=== PATIENT | male | born 2000 | race Caucasian/White ===

== ENCOUNTER 2020-04-10 06:32 | Emergency (ER) | payer BC, MEDICAID ==
[~2020-04-10] VITALS: Ht 172.7 cm; Wt 82.3 kg
--- NOTE | 2020-04-10 06:54 | NUR ---
REPORT TO PEG SRIVASTAVA
[2020-04-10] MEDS ORDERED: FENTANYL PF 100 MCG/2ML ONE ×2 (06:58→09:10)
[2020-04-10] MEDS ORDERED: FENTANYL PF 100 MCG/2ML IM ONE (07:00)
--- NOTE | 2020-04-10 07:12 | NUR ---
PT MEDICATED FOR PAIN PER MAR. PT TO BP, CONT PULSE OX AT THIS TIME, CURRENTLY AWAITING IMAGING. VSS
--- NOTE | 2020-04-10 07:57 | NUR ---
GUM REMOVER: ORTHO PAGED PER DR. PAZ REQUEST AT THIS TIME.
--- NOTE | 2020-04-10 08:15 | NUR ---
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
--- NOTE | 2020-04-10 08:29 | NUR ---
PT BACK FROM IMAGING, PIV INITIATED, ANTICIPATE PROCEDURAL SEDATION AND REDUCTION OF L SHOULDER, PT UPDATED ON POC
[2020-04-10] MEDS ORDERED: PROPOFOL 10 MG/ML, 20ML ONE (09:10)
--- NOTE | 2020-04-10 09:41 | NUR ---
PROCEDURAL SEDATION/CLOSED REDUCTION COMPLETED AT BEDSIDE WITH ERMD. PT TOLERATED PROCEDURE WELL, VSS. TO CT AT THIS TIME. SEE PAPER CHARTING FOR VS AND NOTES
[2020-04-10 09:56] VITALS: BP 113/55
--- NOTE | 2020-04-10 10:40 | NUR ---
PT CLEARED FOR DC, AWAITING RIDE.
--- NOTE | 2020-04-10 11:09 | NUR ---
PT WITH RIDE HOME, GIVEN DC MATERIALS
== END 2020-04-10 11:10 | disposition home or self-care (01) ==
LOC: ED 10:30
DX: S42.255A Nondisplaced fracture of greater tuberosity of left humerus, initial encounter for closed fracture (principal); S09.90XA Unspecified injury of head, initial encounter; W19.XXXA Unspecified fall, initial encounter; Y93.89 Activity, other specified; Y92.098 Other place in other non-institutional residence as the place of occurrence of the external cause; Y99.8 Other external cause status
CPT/HCPCS: 23665; 70450; 71045; 72125; 73030; 73200; 96372; 99285; J3010